=== PATIENT | female | born 1955 | race African-American/Black ===

== ENCOUNTER 2017-01-27 14:08 | Inpatient (IN) | payer BC ==
--- NOTE | ~2017-01-27 | HP ---
History And Physical [facility] [address] [place]. [address] NAME: ANITA DUMONT : 59 STATUS : ADM IN [facility]#: [id number] AGE: 61 ADM/REG DATE : 01/27/17 MR#: [id number] REPORT SERV DATE: 01/27/17 DICTATED BY: MALICK ACOSTA DATE: 01/27/17 REPORT STATUS : Draft TRANSCRIBED BY: MODL DATE: 01/27/17 DATE OF ADMISSION: 01/27/2017 CARDIOLOGY ADMISSION HISTORY AND PHYSICAL IDENTIFYING DATA: The patient is a 61-year-old woman with known coronary heart disease, status post recent myocardial infarction and stenting at [facility]. CHIEF COMPLAINT: 24 hours of progressive substernal chest tightness. HISTORY OF PRESENT ILLNESS: Ms Dumont is a pleasant 61-year-old woman who was recently treated at [facility] for a myocardial infarction, not otherwise specified. The patient was subsequently seen by Dr. Guicho Carranza for symptoms of ongoing exertional dyspnea and chest pain. The patient has had a recent myocardial perfusion imaging study demonstrating a decreased left ventricular ejection fraction of 33% as well as apical ischemia. An elective cardiac catheterization had been planned, however, the patient presented to [facility] Emergency Room after having progressive substernal chest tightness with radiation to her left shoulder over the last 24 hours. The patient reports that she has taken several nitroglycerin tablets with partial relief of her symptoms. She reports associated diaphoresis. At this time, the patient reports her chest pain has resolved, however. She has a chronic exertional dyspnea and describes NYHA Functional Class II to III symptoms. She denies orthopnea or paroxysmal nocturnal dyspnea. The patient denies any previous history of congestive heart failure. PAST MEDICAL HISTORY: 1. Coronary artery disease, status post recent myocardial infarction and stenting of the right coronary artery in July of [address] [facility] [address] Lopez. 2. Hypertension. 3. Chronic kidney disease - followed by Dr. Zaire Rodriguez. PAST SURGICAL HISTORY: 1. The patient underwent recent stenting of the right coronary artery in July of 2016 as noted above. 2. Partial hysterectomy. 3. Cholecystectomy. 4. Appendectomy. 5. Tonsillectomy. FAMILY HISTORY: The patient reports her father suffered myocardial infarction at age 64. There is no other significant family history of coronary heart disease or sudden cardiac . SOCIAL HISTORY: The patient is a one-half pack per day smoker x18 years. She denies alcohol or drug use. ALLERGIES: THE PATIENT REPORTS NO KNOWN MEDICATION ALLERGIES. History And Physical [address] [address] NAME: ANITA DUMONT : 59 STATUS : ADM IN PAT#: [id number] AGE: 61 ADM/REG DATE : 01/27/17 MR#: [id number] REPORT SERV DATE: 01/27/17 DICTATED BY: MALICK ACOSTA DATE: 01/27/17 REPORT STATUS : Draft TRANSCRIBED BY: TOREY DATE: 01/27/17 HOME MEDICATIONS: 1. Allopurinol 200 mg p.o. daily. 2. Amlodipine 5 mg p.o. daily. 3. Aspirin 81 mg p.o. daily. 4. Plavix 75 mg daily. 5. Hydrocodone/acetaminophen 7.5/325 mg one tab every four hours as needed for pain. 6. Metoprolol tartrate 12.5 mg twice daily. 7. Clear eyes ophthalmologic drops p.r.n. dryness daily. 8. Sublingual nitroglycerin 0.4 mg p.o. q.5 minutes p.r.n. chest pain. 9. Pravastatin 40 mg p.o. q.h.s. 10.Phenergan 25 mg p.o. q.4 hours as needed for nausea. 11.Anch-ltr-lsewegi sinus medication, not otherwise specified. 12.Diovan 160 mg p.o. daily. REVIEW OF SYSTEMS: A complete 12-system review was performed. This is noncontributory except for the pertinent positives and negatives noted in the history of present illness above. PHYSICAL EXAMINATION: VITAL SIGNS: Temperature is 97.8 degrees Fahrenheit, blood pressure 142/78 mmHg, heart rate is 56 beats per minute and regular, respirations 16, oxygen saturation is 97% on room air. GENERAL: The patient is a well-nourished, well-developed woman, in no acute distress. EYES: PERRL, EOMI, clear conjunctiva. HEAD/MNT: NCAT with moist mucous membranes and grossly normal hard and soft palate. NECK: Supple with no obvious thyromegaly or lymphadenopathy CARDIOVASCULAR: There is a regular rhythm with a normal S1 and a physiologically split second heart sound. No significant murmurs, rubs, or gallops are noted. The jugular venous pressure appears normal. PULMONARY: Clear to auscultation bilaterally, no wheezing, rales or rhonchi noted. No dullness to percussion. Non-labored. ABDOMINAL: Soft, non-tender, non-distended with no hepatosplenomegaly noted. EXTREMITIES: No clubbing or cyanosis. Note that the patient has 2+ radial pulses bilaterally. MUSCULOSKELETAL: Grossly normal strength and range of motion in all extremities INTEGUMENTARY: Skin appears intact with no bruises, wounds or active lesions noted NEURO/PSYC: Alert and oriented x3, with no dysarthria, facial droop or lateralizing weakness noted. DIAGNOSTIC STUDIES: 12-lead EKG: The 12-lead EKG shows sinus bradycardia with minimal criteria for left ventricular hypertrophy. There is poor anterior R-wave progression noted. Cannot exclude inferior NV of indeterminate age. The EKG is not significantly changed in comparison to a tracing from Dr. Carranza' office. LABORATORY DATA: Troponin I is less than 0.02. Sodium is 141, potassium 4.5, chloride is 111, BUN 17, creatinine is 1.1, glucose 85, calcium 9.2, magnesium 2.1. White blood cell History And Physical [address] [address] NAME: ANITA DUMONT : 59 STATUS : ADM IN [facility]#: [id number] AGE: 61 ADM/REG DATE : 01/27/17 MR#: [id number] REPORT SERV DATE: 01/27/17 DICTATED BY: MALICK ACOSTA DATE: 01/27/17 REPORT STATUS : Draft TRANSCRIBED BY: MODZulay DATE: 01/27/17 count is 3.6, hemoglobin 11.5, hematocrit 35, platelets 155. INR is 1.1. CHEST X-RAY: The patient's chest x-ray shows no acute cardiopulmonary process. ASSESSMENT AND PLAN: 1. Unstable angina: The patient will be admitted for coronary angiography tomorrow. She will continue her home medication regimen, however, we will increase metoprolol to 25 mg p.o. twice daily. Also, the patient will be transitioned from pravastatin to atorvastatin to comply with current ACC/AHA guidelines for treatment of coronary heart disease. The patient has no contraindications to at least one more year of dual anti- platelet therapy. 2. Stage 3 chronic kidney disease: The patient's creatinine is currently 1.1. She will be given standard pre-catheterization hydration. We will recheck a creatinine one week after her procedure. 3. Hypertension - borderline control: For now, the patient will continue metoprolol with an increase as noted above. Continue valsartan, though this will be held for 24 hours following cardiac catheterization. 4. Tobacco abuse: We will discuss strategies for smoking cessation prior to discharge. [facility]/MODL Malick Acosta MD / [id number] CC: MD Melia Gimenez M.D.
[2017-01-27 12:57] LABS: BASOPHILS 0.3 %; BASOPHILS ABSOLUTE 0.01 10/3/uL (0.0-0.16); EOSINOPHILS 1.4 %; EOSINOPHILS ABSOLUTE 0.05 10/3/uL (0.0-0.53); HEMATOCRIT 34.8 % (36.0-48.0); HEMOGLOBIN 11.5 g/dL (12.0-16.0); IMMATURE GRANULOCYTES 0.3 %; IMMATURE GRANULOCYTES ABSOLUTE 0.01 10/3/uL (0.0-0.11); LYMPHOCYTES 55.5 %; LYMPHOCYTES ABSOLUTE 1.97 10/3/uL (0.67-4.30); MANUAL DIFF NO %; MEAN CORPUSCULAR HEMOGLOB 32.2 pg (26.0-34.0); MEAN CORPUSCULAR VOLUME 97.5 fL (80-100); MONOCYTES 7.9 %; MONOCYTES ABSOLUTE 0.28 10/3/uL (0.21-1.20); NEUTROPHILS 34.6 %; NEUTROPHILS ABSOLUTE 1.23 10/3/uL (2.02-8.40); PLATELET COUNT 155 10/3/uL (150-400); RBC DISTRIBUTION WIDTH 15.5 % (12.0-16.0); RED CELL COUNT 3.57 10/6/uL (4.0-5.6); WHITE BLOOD CELLS 3.6 10/3/uL (4.5-10.5)
[2017-01-27 13:13] LABS: BUN (BLOOD UREA NITROGEN) 17 MG/DL (6-23); CALCIUM, SERUM 9.2 MG/DL (8.5-10.4); CHEST PAIN PROFILE TAT 0 Hrs 20 Mins; CHLORIDE, SERUM 111 MMOL/L (96-112); CO2 (CARBON DIOXIDE) 26 MMOL/L (24-34); CREATININE 1.11 MG/DL (0.55-1.02); GFR AFRICAN AMERICAN 63 ML/MIN (>=60); GFR NON AFRICAN AMERICAN 54 ML/MIN (>=60); GLUCOSE, SERUM 85 MG/DL (60-99); POTASSIUM, SERUM 4.5 MMOL/L (3.5-5.3); SODIUM, SERUM 141 MMOL/L (135-148); TROPONIN I <0.02 NG/ML (<0.05)
[2017-01-27 13:23] LABS: INTERNATIONAL NORMAL RATI 1.1 UNITS (-)
[2017-01-27 13:24] LABS: PARTIAL THROMBO TIME 23.5 SEC (22.5-37.2)
[~2017-01-27 14:08] MED LIST: BENTYL10 PO; COLCRYS0.6 MG PO; OTC SINUS MED PO; PR25 PO; PRIN10 PO; ROCALTROL0.25 MCG OR; Z300 PO
[2017-01-27] MEDS ORDERED: LOP25 PO (15:00)
[2017-01-27] MEDS ORDERED: PLAVIX PO (15:00)
[2017-01-27] MEDS ORDERED: NORV5 PO (15:00)
[2017-01-27] MEDS ORDERED: NITROSTAT0.4 MG SL (15:01)
[2017-01-27] MEDS ORDERED: Z100 PO (15:01)
[2017-01-27] MEDS ORDERED: LIPITOR40 PO (15:01)
[2017-01-27] MEDS ORDERED: DIOV160 PO (15:01)
[2017-01-27] MEDS ORDERED: HALF81 PO (15:01)
[2017-01-27] MEDS ORDERED: PR25 PO (15:02)
[2017-01-27] MEDS ORDERED: NORCO1 TA2 PO (15:02)
[2017-01-27] MEDS ORDERED: OTC SINUS MED PO (15:02)
[2017-01-27] MEDS ORDERED: CLEAR EYE1 OPH (15:03)
[2017-01-27 21:28] LABS: BASOPHILS 0.2 %; BASOPHILS ABSOLUTE 0.01 10/3/uL (0.0-0.16); EOSINOPHILS 1.6 %; EOSINOPHILS ABSOLUTE 0.07 10/3/uL (0.0-0.53); HEMATOCRIT 32.6 % (36.0-48.0); HEMOGLOBIN 10.8 g/dL (12.0-16.0); IMMATURE GRANULOCYTES 0.2 %; IMMATURE GRANULOCYTES ABSOLUTE 0.01 10/3/uL (0.0-0.11); LYMPHOCYTES 64.5 %; LYMPHOCYTES ABSOLUTE 2.78 10/3/uL (0.67-4.30); MEAN CORPUS HGB CONC 33.1 g/dL (32.0-36.0); MEAN CORPUSCULAR VOLUME 96.7 fL (80-100); MEAN PLATELET VOLUME 10.6 fL (9.2-13.0); MONOCYTES 5.8 %; MONOCYTES ABSOLUTE 0.25 10/3/uL (0.21-1.20); NEUTROPHILS 27.7 %; NEUTROPHILS ABSOLUTE 1.19 10/3/uL (2.02-8.40); PLATELET COUNT 145 10/3/uL (150-400); RBC DISTRIBUTION WIDTH 15.3 % (12.0-16.0); RED CELL COUNT 3.37 10/6/uL (4.0-5.6); WHITE BLOOD CELLS 4.3 10/3/uL (4.5-10.5)
[2017-01-27 21:29] LABS: MANUAL DIFF NO %
[2017-01-28 03:18] LABS: BASOPHILS 0.2 %; BASOPHILS ABSOLUTE 0.01 10/3/uL (0.0-0.16); EOSINOPHILS ABSOLUTE 0.09 10/3/uL (0.0-0.53); HEMATOCRIT 34.7 % (36.0-48.0); HEMOGLOBIN 11.8 g/dL (12.0-16.0); IMMATURE GRANULOCYTES 0.2 %; IMMATURE GRANULOCYTES ABSOLUTE 0.01 10/3/uL (0.0-0.11); LYMPHOCYTES ABSOLUTE 2.85 10/3/uL (0.67-4.30); MEAN CORPUSCULAR HEMOGLOB 32.8 pg (26.0-34.0); MEAN CORPUSCULAR VOLUME 96.4 fL (80-100); MEAN PLATELET VOLUME 10.9 fL (9.2-13.0); MONOCYTES 8.9 %; MONOCYTES ABSOLUTE 0.41 10/3/uL (0.21-1.20); NEUTROPHILS 26.7 %; NEUTROPHILS ABSOLUTE 1.23 10/3/uL (2.02-8.40); PLATELET COUNT 143 10/3/uL (150-400); RBC DISTRIBUTION WIDTH 15.1 % (12.0-16.0); WHITE BLOOD CELLS 4.6 10/3/uL (4.5-10.5)
[2017-01-28 03:23] LABS: MANUAL DIFF NO %
[2017-01-28 03:33] LABS: BUN (BLOOD UREA NITROGEN) 20 MG/DL (6-23); CALCIUM, SERUM 8.6 MG/DL (8.5-10.4); CHLORIDE, SERUM 109 MMOL/L (96-112); CO2 (CARBON DIOXIDE) 25 MMOL/L (24-34); CREATININE 1.19 MG/DL (0.55-1.02); GFR AFRICAN AMERICAN 58 ML/MIN (>=60); GFR NON AFRICAN AMERICAN 50 ML/MIN (>=60); GLUCOSE, SERUM 96 MG/DL (60-99); POTASSIUM, SERUM 3.9 MMOL/L (3.5-5.3); SGPT(ALT) 14 U/L (5-65); SODIUM, SERUM 141 MMOL/L (135-148)
[2017-01-28 03:34] LABS: CHOL/HDL RATIO(NOT ORDER) 2.3 (0-5); CHOLESTEROL 134 MG/DL (< 200); HDL CHOLESTEROL 58 MG/DL (> 49); LDL CHOLESTEROL 49 MG/DL (< 130); NON-HDL CHOLESTEROL 76 MG/DL (< 160); TRIGLYCERIDE 136 MG/DL (< 150)
[2017-01-29] MEDS ORDERED: BRILINTA90 MG PO (00:27)
[2017-01-29] MEDS ORDERED: LIPITOR40 PO (00:27)
[2017-01-29 06:57] LABS: BASOPHILS 0.3 %; BASOPHILS ABSOLUTE 0.01 10/3/uL (0.0-0.16); EOSINOPHILS 1.3 %; EOSINOPHILS ABSOLUTE 0.05 10/3/uL (0.0-0.53); HEMATOCRIT 34.5 % (36.0-48.0); HEMOGLOBIN 11.4 g/dL (12.0-16.0); IMMATURE GRANULOCYTES 0.3 %; IMMATURE GRANULOCYTES ABSOLUTE 0.01 10/3/uL (0.0-0.11); LYMPHOCYTES 38.6 %; LYMPHOCYTES ABSOLUTE 1.44 10/3/uL (0.67-4.30); MEAN CORPUSCULAR HEMOGLOB 31.7 pg (26.0-34.0); MEAN CORPUSCULAR VOLUME 95.8 fL (80-100); MEAN PLATELET VOLUME 10.4 fL (9.2-13.0); MONOCYTES 10.2 %; MONOCYTES ABSOLUTE 0.38 10/3/uL (0.21-1.20); NEUTROPHILS 49.3 %; NEUTROPHILS ABSOLUTE 1.84 10/3/uL (2.02-8.40); PLATELET COUNT 144 10/3/uL (150-400); RBC DISTRIBUTION WIDTH 15.2 % (12.0-16.0); WHITE BLOOD CELLS 3.7 10/3/uL (4.5-10.5)
[2017-01-29 06:59] LABS: MANUAL DIFF NO %
[2017-01-29 07:11] LABS: BUN (BLOOD UREA NITROGEN) 15 MG/DL (6-23); CALCIUM, SERUM 8.9 MG/DL (8.5-10.4); CHLORIDE, SERUM 107 MMOL/L (96-112); CO2 (CARBON DIOXIDE) 23 MMOL/L (24-34); CREATININE 1.25 MG/DL (0.55-1.02); GFR AFRICAN AMERICAN 55 ML/MIN (>=60); GFR NON AFRICAN AMERICAN 47 ML/MIN (>=60); GLUCOSE, SERUM 99 MG/DL (60-99); SODIUM, SERUM 137 MMOL/L (135-148)
[2017-01-29] MEDS ORDERED: PLAVIX PO (15:44)
== END 2017-01-29 15:45 | disposition home or self-care (01) | DRG 247 ==
LOC: ER 14:08 → 5NO 17:53 → SSU1 01-28 10:53
PROVIDERS: Emergency Medicine; Internal Medicine Cardiovascular Disease
PROC: 027034Z Dilation of Coronary Artery, One Artery with Drug-eluting Intraluminal Device, Percutaneous Approach (ICD-10-PCS; principal; 2017-01-27)
PROC: 02C03ZZ Extirpation of Matter from Coronary Artery, One Artery, Percutaneous Approach (ICD-10-PCS; 2017-01-27)
PROC: B2151ZZ Fluoroscopy of Left Heart using Low Osmolar Contrast (ICD-10-PCS; 2017-01-27)
PROC: B2111ZZ Fluoroscopy of Multiple Coronary Arteries using Low Osmolar Contrast (ICD-10-PCS; 2017-01-27)
PROC: 4A023N7 Measurement of Cardiac Sampling and Pressure, Left Heart, Percutaneous Approach (ICD-10-PCS; 2017-01-27)
DX: I25.110 Atherosclerotic heart disease of native coronary artery with unstable angina pectoris (principal); N18.3 Chronic kidney disease, stage 3 (moderate); I12.9 Hypertensive chronic kidney disease with stage 1 through stage 4 chronic kidney disease, or unspecified chronic kidney disease; F17.210 Nicotine dependence, cigarettes, uncomplicated; E78.00 Pure hypercholesterolemia, unspecified; I25.2 Old myocardial infarction; Z79.899 Other long term (current) drug therapy; Z79.82 Long term (current) use of aspirin; Z79.02 Long term (current) use of antithrombotics/antiplatelets; Z95.5 Presence of coronary angioplasty implant and graft; Z90.710 Acquired absence of both cervix and uterus; Z90.49 Acquired absence of other specified parts of digestive tract; Z98.890 Other specified postprocedural states
CPT/HCPCS: 71020; 80048; 80061; 83735; 84460; 84484; 85025; 85610; 85730; 93005; 93458; 93571; 96374; 99152; 99153; 99285; A9270-GY; C1724; C1725; C1769; C1874; C1887; C1894; C8929; C9602; J0583; J2250; J3010; Q9957; Q9967